=== PATIENT | female | born 1980 | race Caucasian/White ===

== ENCOUNTER 2017-12-10 21:50 | Emergency (ER) | payer SELFPAY ==
[2017-12-10 22:00] VITALS: BP 136/81; PULSE 116; TEMP 102.4; BMI 26.4
[2017-12-10] MEDS ORDERED: SODIUM CHLORIDE 0.9% 1000 ML INFUS.BAG IV PRN (22:45)
--- NOTE | 2017-12-10 22:45 | PDOC ---
History of Present Illness <Fidelina Juarez - Last Filed: 12/11/17 00:01> - General History Source: Patient Exam Limitations: No Limitations - History of Present Illness Initial Comments: 12/11/17 02:08 Patient is a 29 year old female with no significant past medical history who presents to the ED with complaints of fever that began 3 days ago. Patient reports experiencing a fever of 102.4 suddenly that began 3 days ago, and has showed no signs of subsiding. She reports experiencing sore throat and chest pain secondary to cough. Patient states he has been experiencing diffuse back pain, that is slightly worse on the right side. She reports visiting from [place] and has been sight seeing for the last couple days. Patient reports having a history of sore throats and thinks this could be a upper respiratory infection. Denies chest pain, Sob. Denies nausea, vomiting . Denies fevers, chills. Denies contact with sick individuals, out of state travelling. Denies any other symptoms. Allergies: None Social history: No smoking. No alcohol. No illicit drugs. Surgical history: None PMD: None <Salvador Marquez - Last Filed: 12/11/17 02:08> - General Chief Complaint: Respiratory Stated Complaint: COLD SYMPTOMS Time Seen by Provider: 12/10/17 22:12 Past History - Past Medical History COPD: No - Suicide/Smoking/Psychosocial Hx Smoking History: Never smoked Have you smoked in the past 12 months: No Information on smoking cessation initiated: No Hx Alcohol Use: No Drug/Substance Use Hx: No Substance Use Type: None <Fidelina Juarez - Last Filed: 12/11/17 00:01> <Salvador Marquez - Last Filed: 12/11/17 02:08> - Past Medical History Allergies/Adverse Reactions: Allergies Allergy/AdvReac Type Severity Reaction Status Date / Time No Known Allergies Allergy Verified 12/10/17 22:00 Home Medications: Ambulatory Orders Oseltamivir Phosphate [Tamiflu -] 75 mg PO BID #10 capsule 12/10/17 Review of Systems - Review of Systems Able to Perform ROS?: Yes Comments:: 12/11/17 02:08 GENERAL/CONSTITUTIONAL: No fever or chills. No weakness. HEAD, EYES, EARS, NOSE AND THROAT: +Sore throat No change in vision. No ear pain or discharge. CARDIOVASCULAR: +Chest pain. No shortness of breath. RESPIRATORY: +cough. No wheezing, or hemoptysis. GASTROINTESTINAL: No nausea, vomiting, diarrhea or constipation. GENITOURINARY: No dysuria, frequency, or change in urination. MUSCULOSKELETAL: No joint or muscle swelling or pain. No neck or back pain. SKIN: No rash NEUROLOGIC: No headache, vertigo, loss of consciousness, or change in strength/ sensation. ENDOCRINE: No increased thirst. No abnormal weight change. HEMATOLOGIC/LYMPHATIC: No anemia, easy bleeding, or history of blood clots. ALLERGIC/IMMUNOLOGIC: No hives or skin allergy. All Other Systems: Reviewed and Negative <Salvador Marquez - Last Filed: 12/11/17 02:08> *Physical Exam - Vital Signs Last Vital Signs Temp Pulse Resp BP Pulse Ox 102.4 F H 116 H 18 136/81 98 12/10/17 21:54 12/10/17 21:54 12/10/17 21:54 12/10/17 21:54 12/10/17 21:54 <Fidelina Juarez - Last Filed: 12/11/17 00:01> - Vital Signs Last Vital Signs Temp Pulse Resp BP Pulse Ox 102.4 F H 116 H 18 136/81 98 12/10/17 21:54 12/10/17 21:54 12/10/17 21:54 12/10/17 21:54 12/10/17 21:54 - Physical Exam Comments: 12/11/17 02:08 GENERAL: Awake, alert, and fully oriented, in no acute distress HEAD: No signs of trauma EYES: PERRLA, EOMI, sclera anicteric, conjunctiva clear ENT: Auricles normal inspection, hearing grossly normal, nares patent, oropharynx clear without exudates. Moist mucosa NECK: Normal ROM, supple, no lymphadenopathy, JVD, or masses LUNGS: Breath sounds equal, clear to auscultation bilaterally. No wheezes, and no crackles HEART: Regular rate and rhythm, normal S1 and S2, no murmurs, rubs or gallops ABDOMEN: +Minimal right flank pain with percussion. Soft, nontender, normoactive bowel sounds. No guarding, no rebound. No masses EXTREMITIES: Normal range of motion, no edema. No clubbing or cyanosis. No cords, erythema, or tenderness NEUROLOGICAL: Cranial nerves II through XII grossly intact. Normal speech, normal gait SKIN: Warm, Dry, normal turgor, no rashes or lesions noted. <AlmaSalvador - Last Filed: 12/11/17 02:08> ED Treatment Course - LABORATORY CBC & Chemistry Diagram: 12/10/17 23:40 12/10/17 23:40 <JuarezFidelina - Last Filed: 12/11/17 00:01> - LABORATORY CBC & Chemistry Diagram: 12/10/17 23:40 12/10/17 23:40 - ADDITIONAL ORDERS Additional order review: Laboratory Results 12/10/17 12/10/17 12/10/17 23:40 23:40 23:40 Sodium 135 L Potassium 4.0 Chloride 101 Carbon Dioxide 26 Anion Gap 8 BUN 9 Creatinine 0.7 Creat Clearance w eGFR > 60 Random Glucose 98 Lactic Acid 0.9 Calcium 8.5 Total Bilirubin 0.2 AST 18 ALT 29 Alkaline Phosphatase 71 Total Protein 8.0 Albumin 3.9 Urine Color Urine Appearance Urine pH Ur Specific [place] Urine Protein Urine Glucose (UA) Urine Ketones Urine Blood Urine Nitrite Urine Bilirubin Urine Urobilinogen Ur Leukocyte Esterase Urine HCG, Qual Negative 12/10/17 23:40 Sodium Potassium Chloride Carbon Dioxide Anion Gap BUN Creatinine Creat Clearance w eGFR Random Glucose Lactic Acid Calcium Total Bilirubin AST ALT Alkaline Phosphatase Total Protein Albumin Urine Color Straw Urine Appearance Clear Urine pH 6.0 Ur Specific [place] 1.005 Urine Protein Negative Urine Glucose (UA) Negative Urine Ketones Negative Urine Blood Negative Urine Nitrite Negative Urine Bilirubin Negative Urine Urobilinogen Negative Ur Leukocyte Esterase Negative Urine HCG, Qual 12/10/17 23:30 Group A Strep Rapid Antigen - Final Throat 12/10/17 23:00 Influenza Types A,B Antigen ([facility]) - Preliminary Nasopharyngeal Swab - Preliminary 12/10/17 23:40 RBC 5.03 MCV 81.6 MCHC 32.8 RDW 14.0 MPV 8.9 Neutrophils % 75.4 Lymphocytes % 14.7 Monocytes % 9.4 Eosinophils % 0.0 Basophils % 0.5 - Medications Given in the ED: ED Medications Discontinued Medications Generic Name Dose Route Start Last Admin Trade Name Freq PRN Reason Stop Dose Admin Acetaminophen 975 mg 12/10/17 23:04 12/10/17 23:51 Tylenol - PO 12/10/17 23:05 975 mg ONCE ONE Administration Ibuprofen 600 mg 12/10/17 23:04 12/10/17 23:51 Motrin - PO 12/10/17 23:05 600 mg ONCE ONE Administration Oseltamivir Phosphate 75 mg 12/10/17 23:41 12/10/17 23:51 Tamiflu - PO 12/10/17 23:42 75 mg ONCE ONE Administration Sodium Chloride 1,000 ml 12/10/17 22:45 12/11/17 00:01 Normal Saline - IV 1,000 ml Q20M PRN Administration MAP<65mm Hg OR SBP <90 <Salvador Marquez - Last Filed: 12/11/17 02:08> *DC/Admit/Observation/Transfer - Discharge Dispostion Admit: No <Fidelina Juarez - Last Filed: 12/11/17 00:01> - Attestations Scribe Attestion: 12/11/17 02:08 Documentation prepared by Salvador Marquez, acting as medical billing assistant for Fidelina Juarez MD/DO. <Salvador Marquez - Last Filed: 12/11/17 02:08> Diagnosis at time of Disposition: Influenza A - Discharge Dispostion Disposition: HOME Condition at time of disposition: Stable - Prescriptions Prescriptions: Oseltamivir Phosphate [Tamiflu -] 75 mg PO BID #10 capsule - Patient Instructions Printed Discharge Instructions: Influenza
[2017-12-10] MEDS ORDERED: ACETAMINOPHEN 500 MG TABLET (FP) PO ONE (23:04)
[2017-12-10] MEDS ORDERED: IBUPROFEN 600 MG TABLET (FP) PO ONE (23:04)
[2017-12-10] MEDS ORDERED: IBUPROFEN 400 MG TABLET (FP) PO ONE (23:22)
[2017-12-10] MEDS ORDERED: ACETAMINOPHEN 325 MG TABLET (FP) ONE (23:22)
[2017-12-10] MEDS ORDERED: OSELTAMIVIR PHOSPHATE 75 MG CAPSULE PO ONE (23:41)
[2017-12-10 23:54] LABS: BASO % 0.5 % (0-2.0); HEMOGLOBIN 13.5 GM/dL (10.7-15.3); LYMPH % 14.7 % (8-40); MCH 26.8 pg (25.7-33.7); MCHC 32.8 g/dl (32.0-36.0); MEAN CELL VOLUME 81.6 fl (80-96); MEAN PLT VOLUME 8.9 fl (7.5-11.1); MONO % 9.4 % (3.8-10.2); NEUT % 75.4 % (42.8-82.8); PLATELET COUNT 191 K/MM3 (134-434); RBC 5.03 M/mm3 (3.60-5.2); WHITE BLOOD COUNT 4.9 K/mm3 (4.0-10.0)
[2017-12-11] MEDS ORDERED: OSELTAMIVIR PHOSPHATE 75 MG CAPSULE ONE (00:05)
[2017-12-11 00:16] LABS: ALBUMIN 3.9 g/dl (3.4-5.0); ALK PHOS 71 U/L (45-117); ANION GAP 8 (8-16); BILIRUBIN,TOTAL 0.2 mg/dL (0.2-1.0); BLOOD UREA NITROGEN 9 mg/dL (7-18); CALCIUM 8.5 mg/dL (8.5-10.1); CHLORIDE 101 mmol/L (98-107); CO2 26 mmol/L (21-32); CREATININE 0.7 mg/dL (0.55-1.02); GLUCOSE,RANDOM 98 mg/dL (74-106); SGPT/ALT 29 U/L (12-78); SODIUM 135 mmol/L (136-145)
[2017-12-11 00:18] LABS: SGOT/AST 18 U/L (15-37)
[2017-12-11 00:28] LABS: URINE APPEARANCE CLEAR; URINE BILIRUBIN NEGATIVE (NEGATIVE); URINE BLOOD NEGATIVE (NEGATIVE); URINE COLOR STRAW; URINE GLUCOSE (UA) NEGATIVE (NEGATIVE); URINE KETONE NEGATIVE (NEGATIVE); URINE LEUK ESTERASE NEGATIVE (NEGATIVE); URINE NITRITE NEGATIVE (NEGATIVE); URINE PROTEIN NEGATIVE (NEGATIVE); URINE UROBILINOGEN NEGATIVE mg/dL (0.2-1.0)
== END 2017-12-11 00:33 | disposition home or self-care (01) ==
LOC: JER 21:50
DX: J09.X2 Influenza due to identified novel influenza A virus with other respiratory manifestations (principal)
CPT/HCPCS: 36415; 71046-TC; 80053; 81003; 83605; 84703; 85025; 87040; 87070; 87077; 87086; 87430; 87804; 99282-25